=== PATIENT | female | born 1980 | race Caucasian/White ===

== ENCOUNTER 2017-03-19 11:14 | Outpatient (CLI) | payer BC, OTHER ==
--- NOTE | 2017-03-19 11:40 | DIAGNOSTIC IMAGING REPORT ---
PROCEDURE: XR FINGER - RIGHT INDICATION: FINGER PAIN, RIGHT *2 VIEW* TECHNIQUE: A P hand and two views of the right second digit. COMPARISON: None. FINDINGS: Normal mineralization. No fractures. Normal osseous alignment. No suspicious soft-tissue calcification or radiodense foreign bodies. IMPRESSION: 1. Intact hand and second digit.
== END 2017-03-19 23:00 ==
LOC: XR SRH 11:14
DX: M79.644 Pain in right finger(s) (principal)